=== PATIENT | female | born 1930 | race Caucasian/White ===

== ENCOUNTER 2016-12-01 00:47 | Emergency (ER) | payer OTHER, MEDICARE ==
[~2016-12-01] VITALS: Ht 157.5 cm; Wt 52.6 kg
--- NOTE | ~2016-12-01 | EKG ---
[address] [address] ELECTROCARDIOGRAM REPORT Name: LULÚSHARON Lomax Room #: [facility]#: [id number] Admission: 12/01/16 Attend Phys: Discharge: 12/01/16 Date of : 28 Report #: [id number] THIS REPORT FOR: //name// [facility] ED Test Date: 2016-12-01 Test Time: 01:08:06 Pat Name: SHARON CHINO Department: Room: Gender: F Teacher Aide: LENA : 1930 Requested By: Drew Shea Order Number: [id number] MD: Lc Albert Measurements Intervals Guin Rate: 61 P: 79 WI: 238 QRS: 43 QRSD: 108 T: 76 QT: 443 QTc: 447 Interpretive Statements Sinus rhythm Prolonged WI interval Compared to ECG 01/22/2005 10:05:27 First degree AV block now present Electronically Signed On 12-01-2016 7:41:01 CDT by Lc Albert [email or web address] <ELECTRONICALLY SIGNED> By: Lc Albert MD, [facility] 12/01/16 [id number] Lc Albert MD, FACC /EPI
[2016-12-01 01:17] LABS: HEMATOCRIT 32.7 % (37.0-47.0); HEMOGLOBIN 11.3 gm/dL (12.0-15.0); MCH 30.3 pg (26.0-34.0); MCHC 34.4 g/dL (28.0-37.0); MCV 88.1 fL (80.0-100.0); RBC 3.72 mil/uL (4.20-5.00); RDW 13.7 % (10.5-14.5); WBC 7.5 thou/uL (4.0-11.0)
[2016-12-01 01:33] LABS: URINE BILIRUBIN NEGATIVE (Negative); URINE BLOOD NEGATIVE (Negative); URINE COLOR YELLOW; URINE GLUCOSE-RANDOM* NEGATIVE (Negative); URINE KETONES NEGATIVE (Negative); URINE LEUKOCYTES-REFLEX NEGATIVE (Negative); URINE PROTEIN (DIPSTICK) NEGATIVE (Negative); URINE SPECIFIC GRAVITY 1.015 (1.003-1.035); URINE UROBILINOGEN 0.2 E.U./dl (0.2-1.0)
[2016-12-01 01:37] LABS: CALCIUM 8.8 mg/dL (8.5-10.1); CREATININE 0.7 mg/dL (0.6-1.0); MAGNESIUM 1.8 mg/dL (1.8-2.4); POTASSIUM 3.9 mmol/L (3.5-5.1)
[2016-12-01 01:42] LABS: APTT 27.6 Seconds (24.5-32.8); PROTIME 10.4 Seconds (9.3-11.4)
[2016-12-01] MEDS ORDERED: NAMENDA 10 MG T10 MG PO (01:50)
[2016-12-01] MEDS ORDERED: ARICEPT 5 MG TAB5 MG PO (01:50)
[2016-12-01] MEDS ORDERED: ZOLOFT25 MG PO (01:51)
[2016-12-01] MEDS ORDERED: TRAZODONE HCL50 MG PO (01:52)
[2016-12-01] MEDS ORDERED: MELATONIN5 M1 PO (01:52)
[2016-12-01] MEDS ORDERED: MIRALAX17 GM PO (01:54)
[2016-12-01 02:47] VITALS: BP 112/65
== END 2016-12-01 02:45 | disposition home or self-care (01) ==
LOC: ER 00:47
PROVIDERS: Emergency Medicine
DX: G62.9 Polyneuropathy, unspecified (principal); R20.0 Anesthesia of skin; Z90.711 Acquired absence of uterus with remaining cervical stump; Z98.890 Other specified postprocedural states; Z88.4 Allergy status to anesthetic agent; Z88.0 Allergy status to penicillin; Z88.8 Allergy status to other drugs, medicaments and biological substances